=== PATIENT | female | born 1985 | race Caucasian/White ===

== ENCOUNTER → 2018-05-14 15:10 | Outpatient (CLI) | payer OTHER, SELFPAY ==
[2018-05-15 12:36] LABS: Strep Grp B PCR POS for Grp B Strep
== END ==
PROVIDERS: PCP Physician Assistant; Visit Provider Obstetrics & Gynecology
DX: Z34.83 Encounter for supervision of other normal pregnancy, third trimester (principal)
CPT/HCPCS: 87653

== ENCOUNTER 2018-06-03 11:11 | Outpatient (CLI) | payer OTHER, SELFPAY | END 2018-06-03 12:26 | disposition home or self-care (01) | LOC: LABOR 12:24 → OB 14:27 | PROVIDERS: PCP Physician Assistant; Visit Provider Obstetrics & Gynecology | DX: O36.63X0 Maternal care for excessive fetal growth, third trimester, not applicable or unspecified (principal); Z3A.37 37 weeks gestation of pregnancy | CPT/HCPCS: 59025; G0378; G0379 ==

== ENCOUNTER 2018-06-12 06:35 | Inpatient (IN) | payer OTHER, SELFPAY ==
[2018-06-12] MEDS: LACTATED RINGERS 1,000 ML 100 ML IV ×2 (07:55→12:03)
[2018-06-12] MEDS: OXYTOCIN PREMIX 30 UNIT/500 ML PLAST..BAG IV (07:55)
[2018-06-12] MEDS: PENICILLIN G POTASSIUM 5,000,000 UNIT in DEXTROSE 5% IN WATER 250 ML IV (07:55)
[2018-06-12 08:12] LABS: Add Manual Diff / Slide Review NO; Basophils Percent Auto 0.7 % (0-2); Eosinophils Percent Auto 0.4 % (2-4); Hematocrit 38.2 % (36-46); Lymphocytes Percent Auto 20.4 % (25-40); Mean Corpuscular HGB Conc 34.1 % (30-36); Monocytes Percent Auto 6.2 % (3-14); Neutrophils Absolute Auto 6900 /uL (3000-5900); Neutrophils Percent Auto 72.3 % (50-75); Platelet Count 174 X10^3/uL (150-400); Red Cell Distribution Width 13.1 % (11.6-14.8); White Blood Cell Count 9.6 X10^3/uL (4.5-11.0)
[2018-06-12 09:38] VITALS: BP 127/60
[2018-06-12] MEDS: PENICILLIN G POTASSIUM 3,000,000 UNIT/50 ML FROZ.PIGGY 100 UNIT IV (12:03)
[2018-06-12] MEDS: ONDANSETRON 4 MG/2 ML INJ IV (14:57)
[2018-06-12] MEDS: IBUPROFEN 600 MG TABLET PO (18:54)
[2018-06-12] MEDS: DERMOPLAST SPRAY 20% 60 ML 1 SPRAY TOP (20:55)
[2018-06-12] MEDS: METHYLERGONOVINE 0.2 MG TABLET PO (21:40)
[2018-06-12] MEDS: OXYCODONE/ACETAMINOPHEN 5/325 TABLET 2 TAB PO ×2 (21:41→23:00)
[2018-06-12] MEDS: miSOPROStol 200 MCG TABLET 800 MCG PR (23:16)
[2018-06-13] MEDS: IBUPROFEN 600 MG TABLET PO ×4 (00:47→20:27)
[2018-06-13] MEDS: OXYCODONE/ACETAMINOPHEN 5/325 TABLET 2 TAB PO ×6 (02:01→22:44)
[2018-06-13] MEDS: METHYLERGONOVINE 0.2 MG TABLET PO ×3 (04:15→12:43)
[2018-06-13 06:54] LABS: Hematocrit 30.8 % (36-46); Hemoglobin 10.6 g/dL (12.0-16.0)
[2018-06-13] MEDS: PRENATAL VIT,CALC/IRON/FOLIC 1 TABLET 1 TAB PO (08:37)
[2018-06-13] MEDS: DOCUSATE 250 MG CAPSULE PO (08:37)
[2018-06-14] MEDS: IBUPROFEN 600 MG TABLET PO ×2 (02:50→09:00)
[2018-06-14] MEDS: OXYCODONE/ACETAMINOPHEN 5/325 TABLET 2 TAB PO ×3 (02:50→11:25)
[2018-06-14] MEDS: PRENATAL VIT,CALC/IRON/FOLIC 1 TABLET 1 TAB PO (09:00)
[2018-06-14] MEDS: DOCUSATE 250 MG CAPSULE PO (09:00)
[2018-06-14] MEDS: MEASLES,MUMPS,RUBELLA VACC/PF 0.5 ML VIAL SUBCUT (11:25)
--- NOTE | 2018-08-02 14:33 | PM.OBDS.1 ---
Discharge Providers Date of admission: 06/12/18 06:35 Primary care physician: Sg Cooley PA-C Consults: 06/12/18 18:26 Consult to Maintenance Service Supervisor Routine Comment: Discharge provider: Tiago Perkins MD Discharge Date: 06/14/18 Summary Date Patient Seen: 06/14/18 Time Patient Seen: 14:34 Hospital Course: The patient is a 33-year-old four para two with an TREVOR of 06/18/2018 based on her last menstrual period and an early ultrasound. The patient presented for induction of labor at 39 weeks . Her antepartum course was uneventful. She is AB positive antibody screen negative. Her serology was nonreactive. Her rubella was nonimmune. Her GBS was positive. Her HIV was negative her GC cultures negative chlamydia cultures negative and her hepatitis B surface antigen was negative as well. The patient was admitted on June 12, 2018 at 0 700 hr. Pitocin was begun. The patient made rapid progress to complete and had a 1st stage of 3 hr 4 min. She then pushed for 22 min and delivered spontaneously a live born female infant weighing 3556 g or 7 lb 13 oz. The scores were eight at 1 min 10 at 5 min. The patient sustained a first-degree perineal laceration. The estimated blood loss was 200 cc. Placenta delivered spontaneously and the cord had three vessels. There was nuchal cord x1 Post delivery the patient did well. She remained afebrile with stable vital signs and was progressively element and ambulated. She received a consultation. She was discharged home on the for follow-up in six weeks. instructions were given of the guards the diet wound care by eating and exercise Peripartum Data Infant Delivery Method: Natural Vaginal Laceration description: Perineal - 1st Degree Episiotomy description: None Procedures: Repair of first-degree tear complications: none Status at Discharge Cognitive/behavioral status at discharge: Normal Functional status at discharge: independent ambulation Overall status at discharge: patient is back to baseline Time Spent with Patient Total time spent providing and/or coordinating discharge services: Less than 30 minutes Time spent discussing smoking cessation with patient: 3 to 10 minutes Objective Labs Result Diagrams: 06/13/18 05:45 Discharge Plan Discharge Plan Patient Disposition: Home Discharge comment: Call with fever, chills or bleeding vaginally more than a pad in an hour Discharge Med Rec/Prescriptions Follow up/Referrals: Sg Cooley PA-C [Primary Care Provider] - 6 Weeks Provider Discharge Instructions Diet: Diet as Tolerated Activity: No intercourse Skin/Wound/Dressing Care Report to your healthcare provider any signs of infection, such as:: chills, fever, night sweats and unusual drainage Visit Report/Discharge Packet Instructions: Labor and Delivery, Vaginal Visit Report Forms: Stroke Signs & Symptoms Discharge Data Primary Care Provider: Sg Cooley Attending Provider: Katie Sherwood Admit Date/Time: 06/12/18 06:35 Discharges patient from system. Discharge Date/Time: 06/14/18 12:25
== END 2018-06-14 12:25 | disposition home or self-care (01) | DRG 775 ==
PROVIDERS: Admitting Provider Obstetrics & Gynecology; PCP Physician Assistant; Visit Provider Obstetrics & Gynecology
DX: O99.824 Streptococcus B carrier state complicating childbirth (principal); Z3A.39 39 weeks gestation of pregnancy; Z37.0 Single live birth; O70.0 First degree perineal laceration during delivery; O69.81X0 Labor and delivery complicated by cord around neck, without compression, not applicable or unspecified
CPT/HCPCS: 01967; 36415; 59050; 59400; 85014; 85018; 85025; 86850; 86900; 86901; G0379; J2405; J2540; J2590; S0191

== ENCOUNTER → 2021-10-29 12:58 | Outpatient (CLI) | payer OTHER, SELFPAY ==
--- NOTE | 2021-10-29 | DI.MRI.S_ITS ---
PROCEDURE: MR KNEE RT WO CON INDICATIONS: Right knee pain TECHNIQUE: Noncontrast sagittal PD fast spin echo and T2 fast spin echo with fat saturation, sagittal 3-D FLASH with fat saturation; coronal T1 spin echo and PD fast spin echo with fat saturation, and axial PD fast spin echo with fat saturation through the knee. COMPARISON: None. FINDINGS: Image quality: Excellent. Menisci: There is a complex tear involving the posterior horn of the medial meniscus with both horizontal component and vertical component extending to the inferior articular surface. There is intrasubstance degeneration in the body of the medial meniscus. The lateral meniscus demonstrates normal morphology and internal signal. The meniscal root ligaments appear intact. Cruciate ligaments: The anterior and posterior cruciate ligaments appear intact. Medial structures: The medial collateral ligament appears intact. The semimembranosus tendon insertions and meniscocapsular junction appear intact. Visualized portions of the pes anserinus tendons appear normal. No abnormal bursal fluid. Lateral structures: The lateral collateral ligament, long and short heads of the biceps femoris tendon appear intact. The popliteus tendon appears normal. Iliotibial band appears normal. Anterior structures: The quadriceps and patellar tendons appear intact. Patellar alignment is normal. No femoral trochlear dysplasia or ventral trochlear prominence. No edema in the infrapatellar fat pad. Bones and cartilage: No bone marrow contusions or fractures. Mild tricompartmental chondral malacia with cartilage thinning and fibrillation. Joint space: There is small knee joint effusion. Trace Sheets's cyst. Normal appearing synovial plicae are incidentally noted. IMPRESSION: 1. Complex tear of the posterior horn of the medial meniscus. 2. Mild tricompartmental chondromalacia. 3. Small knee effusion. Dictated by: Ricardo Campa M.D. on 10/31/2021 at 8:28 Approved by: Ricardo Campa M.D. on 10/31/2021 at 9:07
== END ==
PROVIDERS: Referring Provider Family Medicine; Visit Provider Family Medicine
DX: S83.231A Complex tear of medial meniscus, current injury, right knee, initial encounter (principal); M94.261 Chondromalacia, right knee; M25.461 Effusion, right knee; M25.561 Pain in right knee
CPT/HCPCS: 73721

== ENCOUNTER 2022-09-05 09:09 | Day surgery (SDC) | payer OTHER, SELFPAY ==
[2022-08-30 10:26] VITALS: BMI 22.6
[2022-09-05] VITALS (7 sets, daily range): BP systolic 111–138; BP diastolic 61–76; PULSE 87–96; RESP 10–18; TEMP 36.4–37.3; O2SAT 97–100; BMI 22.6
[2022-09-05] MEDS: LACTATED RINGERS 1,000 ML 42 ML IV (10:32)
--- NOTE | 2022-09-05 10:37 | PM.PREOP ---
Pre-operative Note COVID-19 COVID-19 status: Negative Interval Note History & Physical reviewed/Exam performed by Physician: Yes Changes to H&P: No
--- NOTE | 2022-09-05 10:37 | PM.OP.1 ---
Operative Date/Time/Diagnoses Date of procedure: 09/05/22 Time of procedure: 10:50 Pre-op diagnosis: Right knee medial meniscus tear Post-op diagnosis: same Procedure & Clinicians Procedure: Right knee arthroscopy with partial medial meniscectomy Same procedure as scheduled: Yes Indications: This is a 37-year-old female with ongoing right knee medial joint line pain. She failed extensive conservative treatment and had an MRI scan which showed evidence of a posterior medial meniscus tear. She is brought the operating room for a right knee arthroscopy with repair as indicated. Surgeon: Gisel Arguello Click Yes if Unassisted: Yes Anesthesia Type: General Operative Notes Findings: Examination under anesthesia stable, patellofemoral joint within normal limits, suprapatellar pouch and gutters no loose bodies, medial compartment tear in the posterior horn of the medial meniscus which extended from the middle 3rd of the medial meniscus into the posterior horn, fairly normal-appearing medial femoral condyle and tibial plateau, notch normal ACL, lateral compartment normal lateral compartment Closure Type: primary Specimen(s): none sent Estimated Blood Loss (mL): 10 Blood products transfused: none Procedure in detail: Patient is brought operating room. They were given IV antibiotics prophylactically. A time-out was performed. She underwent induction of a general anesthesia. There were transferred to the operating room table and moved inferiorly. The right lower extremity was prepped and draped in a standard sterile fashion. Three portal arthroscopy was performed. Intraoperative findings were as listed above. Her examination under anesthesia was stable. Her pathology was confined to the medial compartment. There was a tear in the posterior horn of the medial meniscus. It extended from the middle 3rd of the medial meniscus into the posterior horn. It had an unstable flap. Portals were established with an 11 blade. A mechanical shaver was used to remove the unstable portion of the medial meniscus. Approximately 50% of the medial meniscus was resected from the middle 3rd and posterior 3rd of the medial meniscus. The residual meniscus was carefully probed and it was noted that the residual meniscus was stable. The knee was meticulously irrigated with normal saline. Marcaine was injected. Portals were closed with interrupted nylon. Steri-Strips were applied. The wound was dressed sterilely. Patient tolerated the procedure well was transferred to recovery room in satisfactory condition. Complications: none Post-operative Condition: stable Disposition: Acute Care Plan for aftercare: Weight-bearing as tolerated on the right lower extremity. Use ice as needed. Discharge to home with routine postop follow-up.
[2022-09-05] MEDS: CEFAZOLIN 2 GM/100 ML PREMIX 100 ML IV (10:51)
[2022-09-05] MEDS: BUPIVACAINE 0.5% (PF) 30 ML, EPINEPHrine 0.15 MG INJ (11:15)
--- NOTE | 2022-09-05 11:16 | SUR.OPER ---
Supine on padded OR bed, head on pillow, arms secured on padded arm boards at <90 degrees abduction, legs uncrossed, safety belt at waist, left leg in lithotomy in yellowfir positioner, right leg held at thigh with arthroscopic knee whitney
[2022-09-05] MEDS: HYDROCODONE/ACET 5/325 TABLET 1 TAB PO (11:56)
== END 2022-09-05 12:37 | disposition home or self-care (01) ==
PROVIDERS: PCP Family Medicine; Referring Provider Family Medicine; Visit Provider Orthopaedic Surgery
PROC: (CPT 29870; principal; 2022-09-05 11:15)
DX: S83.241A Other tear of medial meniscus, current injury, right knee, initial encounter (principal)
CPT/HCPCS: 29881; 81025; J0171; J0690; J1100; J2250; J2405; J2704; J3010